=== PATIENT | male | born 1955 | race Caucasian/White ===

== ENCOUNTER 2022-12-16 23:52 | Emergency (ER) | payer MEDICARE, SELFPAY ==
[2022-12-16 23:58] VITALS: BP 146/81; PULSE 77; RESP 16; TEMP 36.4; O2SAT 98
[2022-12-16 23:59] VITALS: BMI 24.1
--- NOTE | 2022-12-17 00:17 | ECG_ITS ---
[facility] Test Date: 2022-12-17 Pat Name: Levi Avina Department: Room: Gender: Male Colorist Dyer: : 1955 Requested By: Cristi Jay Order Number: [id number] Marisela MD: Anton Canchola M.D. Measurements Intervals [place] Rate: 75 P: 0 IA: 0 QRS: 247 QRSD: 175 T: 79 QT: 431 QTc: 482 Interpretive Statements ELECTRONIC VENTRICULAR PACEMAKER ABNORMAL RHYTHM ECG No previous ECG available for comparison Electronically Signed On 12-17-2022 8:12:03 CDT by Anton Canchola M.D. [id number] f
--- NOTE | 2022-12-17 00:17 | XRR_ITS ---
PROCEDURE INFORMATION: Exam: XR Chest Exam date and time: 12/17/2022 12:43 AM Age: 67 years old Clinical indication: Pain; Chest pressure; Prior surgery; Surgery date: 6+ months; Surgery type: Mitral valve. Defibrillator; Patient HX: C/O chest discomfort after defibrillator fired. ; Additional info: Arrhythmia TECHNIQUE: Imaging protocol: Radiologic exam of the chest. Views: 1 view. COMPARISON: No relevant prior studies available. FINDINGS: Lungs: Unremarkable. No consolidation. Pulmonary vascularity is within normal limits. Pleural spaces: Unremarkable. No pleural effusion. No pneumothorax. Heart/Mediastinum: There is cardiomegaly. A pacemaker device is present, and its leads are in appropriate position. Bones/joints: No acute abnormality. XR/XR chest 1V portable [id number] IMPRESSION: No acute findings.
[2022-12-17 00:35] VITALS: BP 99/74; PULSE 75; O2SAT 96
--- NOTE | 2022-12-17 00:36 | PC.NURSE ---
[employer] Pacemker/defibrillator interrogated at 0028
[2022-12-17 01:00] VITALS: BP 104/73; PULSE 75; O2SAT 96
[2022-12-17 01:09] LABS: Alanine Aminotransferase 24 U/L (0-41); Alkaline Phosphatase 94 U/L (40-130); Anion Gap 13.7 (5-19); Aspartate Amino Transferase 27 U/L (0-40); Blood Urea Nitrogen 25 mg/dL (8-23); Calcium 9.7 mg/dL (8.5-10.5); Carbon Dioxide 25 mmol/L (22-29); Chloride 105 mmol/L (98-107); Globulin 2.4 g/dL (1.3-4.6); Glomerular Filtration Rate 66.6 mL/min (90-130); Glucose 102 mg/dL (65-115); Magnesium 2.1 mg/dL (1.7-2.3); NT Pro B Type Natriuretic Pept 6029 pg/mL (0-125); Osmolality Calculated 293 mOsm/kg (285-295); Potassium 4.7 mmol/L (3.5-5.1); Sodium 139 mmol/L (136-145); Total Bilirubin 0.4 mg/dL (0.15-1.2); Total Protein 6.4 g/dL (6.6-8.7)
[2022-12-17 01:24] LABS: Troponin(5th) Baseline 31 ng/L (0-15)
[2022-12-17 01:33] VITALS: BP 109/75; PULSE 75; O2SAT 95
[2022-12-17 01:36] LABS: INR 1.16 (0.8-1.2)
[2022-12-17 01:37] LABS: Partial Thromboplastin Time 30.7 SECONDS (23.9-36.7)
[2022-12-17 01:48] LABS: Basophils % 0.2 %; Eosinophils # 0.1 10^3/uL (0.0-0.8); Eosinophils % 1.5 %; Hematocrit 47.8 % (42.0-52.0); Hemoglobin 15.6 g/dL (11.7-16.6); Lymphocytes % 22.1 %; Mean Corpuscular HGB Conc 32.6 g/dL (30.0-36.0); Mean Corpuscular Hemoglobin 33.3 pg (28.0-34.0); Mean Corpuscular Volume 101.9 fl (80-94); Mean Platelet Volume 11.5 fL (7.4-10.4); Monocytes # 0.7 10^3/uL (0.2-0.9); Nucleated Red Blood Cells % 0 %; Platelet Count 152 10^3/cmm (130-400); Red Blood Count 4.69 10^6/uL (4.1-5.3); Red Cell Distribution Width 12.7 % (12.1-15.1); White Blood Count 9.1 10^3/uL (4.0-10.0)
--- NOTE | 2022-12-17 02:17 | ECG_ITS ---
[facility] Test Date: 2022-12-17 Pat Name: Levi Avina Department: Room: Gender: Male Air Sealing Technician: : 1955 Requested By: Cristi Jay Order Number: [id number] Marisela MD: Anotn Canchola M.D. Measurements Intervals [place] Rate: 75 P: 0 AR: 0 QRS: 236 QRSD: 177 T: 63 QT: 429 QTc: 479 Interpretive Statements ELECTRONIC VENTRICULAR PACEMAKER ABNORMAL RHYTHM ECG No previous ECG available for comparison Electronically Signed On 12-17-2022 8:16:24 CDT by Anton Canchola M.D. [id number] f
[2022-12-17 02:43] VITALS: BP 111/76; PULSE 75; O2SAT 97
[2022-12-17 02:51] LABS: Troponin 5 2HR 32.42 ng/L (0-15)
[2022-12-17 03:07] LABS: Troponin 5 2HR Delta 1.42 ABS# (0-10)
[2022-12-17 03:48] VITALS: BP 99/76; PULSE 76; RESP 18; O2SAT 97
--- NOTE | 2022-12-17 07:08 | ED_ITS ---
HPI - Arrhythmia/Palpitations General: Chief Complaint: Arrhythmia/Palpitations Stated Complaint: defibrillator went off Time Seen by Provider: 12/17/22 00:16 Source: patient History of Present Illness: 67-year-old male gentleman with a history of nonischemic cardiomyopathy following a heart valve surgery a few years ago. He had a ICD/pacer placed in [facility] in June. He presents after the device went off in his chest waking him from sleep. He had felt well the day prior. Besides fatigue and some neck discomfort from muscle contraction, he feels fine on arrival here. No recent illness. He has been taking his medications as prescribed. Recently he was increased on metoprolol from 50-100 twice daily. Onset (ago): minute(s) Severity: moderate Context: awoke with symptoms Arrhythmia history: other Associated symptoms: Reports no associated symptoms; Deny nausea or vomiting Review of Systems Const: Denies: fever(s) ENMT: Denies: throat pain Card: Denies: chest pain, swelling of feet/ankles or dyspnea on exertion Resp: Denies: dyspnea, productive cough or non-productive cough GI: Denies: abdominal pain, nausea or vomiting Skin/Breast: Denies: rash Physical Exam Const: COMMON NORMALS: no acute distress GENERAL APPEARANCE: cooperative; not ill appearing and not frail appearing HENMT: COMMON NORMALS: normocephalic, atraumatic and Normal external nose present HEAD & SCALP: normocephalic and atraumatic FACE & SINUS: normal facial exam and face symmetric NOSE: Normal external nose present Eye: COMMON NORMALS: Equal, round and reactive pupils present and EOMs intact bilaterally PUPIL: Yes Equal, round and reactive pupils present Neck/C-Spine: GENERAL: Yes trachea midline Chest: CHEST: Yes Symmetrical chest wall rise Resp: COMMON NORMALS: normal respiratory effort, No retractions, No use of accessory muscles and clear to auscultation bilaterally AUSCULTATION: clear to auscultation bilaterally Cardio: COMMON NORMALS: regular rate and regular rhythm RATE: regular rate RHYTHM: regular rhythm GI: COMMON NORMALS: Normal to inspection, nondistended, normoactive bowel sounds present Extremity: COMMON NORMALS: no pedal edema Neuro: ZOLTAN COMA SCALE: document GCS findings Zoltan coma scale eye opening: Spontaneous [place] coma scale verbal response: Orientated [place] coma scale motor response: Obey commands Zoltan coma scale total score: 15 SENSORY EXAM: Yes extremities (intact) Psych: COMMON NORMALS: speech normal SPEECH: Yes normal speech Skin: COMMON NORMALS: no rashes or lesions noted GENERAL SKIN EXAM: no rashes or lesions noted Course Vital Signs: Vital signs: Vital Signs Temperature 97.6 F 12/16/22 23:58 Pulse Rate 76 12/17/22 03:48 Respiratory Rate 18 12/17/22 03:48 Blood Pressure 99/76 12/17/22 03:48 Pulse Oximetry 97 12/17/22 03:48 Oxygen Delivery Me thod Room Air 12/17/22 02:43 MDM - Arrhythmia/Palpitations Medical Decision Making No repeated events. No episodes of arrhythmia on the monitor. Pacer as interpreted, and shortly after 11 PM, it shows conversion of ventricular tachycardia. CBC is normal. BMP shows a BUN of 25, otherwise normal. Magnesium is normal. Chest x-ray is nonacute with proper lead wire placement. BNP is elevated at 6000. His delta Trop at 2 hours is 1.4. EKG simply shows a paced rhythm. Spoke with cardiology. Agrees that and lieu of above findings, will allow home to follow-up with cardiology. Case management order has been placed to obtain the patient appointment. To return if any worsening symptoms. Lab Data 12/17/22 00:31 12/17/22 00:31 Radiology Impressions Chest X-Ray 12/17/22 00:17 IMPRESSION: No acute findings. Laboratory Results WBC 9.1 10^3/uL (4.0-10.0) 12/17/22 00:31 WBC Cancelled 12/17/22 00:31 Corrected WBC Cancelled 12/17/22 00:31 RBC 4.69 10^6/uL (4.1-5.3) 12/17/22 00:31 RBC Cancelled 12/17/22 00:31 Hgb 15.6 g/dL (11.7-16.6) 12/17/22 00:31 Hgb Cancelled 12/17/22 00:31 Hct 47.8 % (42.0-52.0) 12/17/22 00:31 Hct Cancelled 12/17/22 00:31 MCV 101.9 fl (80-94) H 12/17/22 00:31 MCV Cancelled 12/17/22 00:31 MCH 33.3 pg (28.0-34.0) 12/17/22 00:31 MCH Cancelled 12/17/22 00:31 MCHC 32.6 g/dL (30.0-36.0) 12/17/22 00:31 MCHC Cancelled 12/17/22 00:31 RDW 12.7 % (12.1-15.1) 12/17/22 00:31 RDW Cancelled 12/17/22 00:31 Plt Count 152 10^3/cmm (130-400) 12/17/22 00:31 Plt Count Cancelled 12/17/22 00:31 MPV 11.5 fL (7.4-10.4) H 12/17/22 00:31 MPV Cancelled 12/17/22 00:31 Gran % Cancelled 12/17/22 00:31 Neut % (Auto) 68.0 % 12/17/22 00:31 Neut % (Auto) Cancelled 12/17/22 00:31 Lymph % (Auto) 22.1 % 12/17/22 00:31 Lymph % (Auto) Cancelled 12/17/22 00:31 Eaton % (Auto) 8.0 % 12/17/22 00:31 [place] % (Auto) Cancelled 12/17/22 00:31 Eos % (Auto) 1.5 % 12/17/22 00:31 Eos % (Auto) Cancelled 12/17/22 00:31 Baso % (Auto) 0.2 % 12/17/22 00:31 Baso % (Auto) Cancelled 12/17/22 00:31 Neut # (Auto) 6.20 10^3/uL (1.8-7.7) 12/17/22 00:31 Neut # (Auto) Cancelled 12/17/22 00:31 Lymph # (Auto) 2.0 10^3/uL (0.8-4.8) 12/17/22 00:31 Lymph # (Auto) Cancelled 12/17/22 00:31 [place]aton # (Auto) 0.7 10^3/uL (0.2-0.9) 12/17/22 00:31 [place] # (Auto) Cancelled 12/17/22 00:31 Eos # (Auto) 0.1 10^3/uL (0.0-0.8) 12/17/22 00:31 Eos # (Auto) Cancelled 12/17/22 00:31 Baso # (Auto) 0.0 10^3/uL (0.0-0.1) 12/17/22 00:31 Baso # (Auto) Cancelled 12/17/22 00:31 Absolute Gran (auto) Cancelled 12/17/22 00:31 Nucleated RBC % (auto) 0 % 12/17/22 00:31 Nucleated RBC % (auto) Cancelled 12/17/22 00:31 Nucleated RBCs # 0.0 /100WBC 12/17/22 00:31 Nucleated RBCs # Cancelled 12/17/22 00:31 PT 15.20 SECONDS (12.1-14.9) H 12/17/22 01:05 INR 1.16 (0.8-1.2) 12/17/22 01:05 APTT 30.7 SECONDS (23.9-36.7) 12/17/22 01:05 Sodium 139 mmol/L (136-145) 12/17/22 00:31 Potassium 4.7 mmol/L (3.5-5.1) 12/17/22 00:31 Chloride 105 mmol/L (98-107) 12/17/22 00:31 Carbon Dioxide 25 mmol/L (22-29) 12/17/22 00:31 Anion Gap 13.7 (5-19) 12/17/22 00:31 BUN 25 mg/dL (8-23) H 12/17/22 00:31 Creatinine 1.1 mg/dL (0.7-1.2) 12/17/22 00:31 GFR Calculation 66.6 mL/min (90-130) L 12/17/22 00:31 Glucose 102 mg/dL (65-115) 12/17/22 00:31 Calculated Osmolality 293 mOsm/kg (285-295) 12/17/22 00:31 Calcium 9.7 mg/dL (8.5-10.5) 12/17/22 00:31 Magnesium 2.1 mg/dL (1.7-2.3) 12/17/22 00:31 Total Bilirubin 0.4 mg/dL (0.15-1.2) 12/17/22 00:31 AST 27 U/L (0-40) 12/17/22 00:31 ALT 24 U/L (0-41) 12/17/22 00:31 Alkaline Phosphatase 94 U/L (40-130) 12/17/22 00:31 Troponin T Baseline 31 ng/L (0-15) H 12/17/22 00:31 Troponin T 120 Minute 32.42 ng/L (0-15) H 12/17/22 02:22 Delta Troponin T 1.42 ABS# (0-10) 12/17/22 02:22 NT-Pro-B Natriuret Pep 6029 pg/mL (0-125) H 12/17/22 00:31 Total Protein 6.4 g/dL (6.6-8.7) L 12/17/22 00:31 Albumin 4.0 g/dL (3.5-5.2) 12/17/22 00:31 Globulin 2.4 g/dL (1.3-4.6) 12/17/22 00:31 Discharge Plan Discharge Patient Disposition: Home Clinical Impression: Palpitations, Ventricular tachycardia Condition: Stable Discharge Orders: Discharge ED (Routine); Ordered 12/17/22 Ordered By: Cristi Amador Patient Instructions: Heart Failure (ED) Activity Restrictions/Additional Instructions: Return to the emergency department for any repeated shocks, chest discomfort, syncope or passing out, any other concerning symptoms. Case management has been asked to make you a follow-up cardiology appointment. You should hear from them Saturday or Saturday. Follow-up with your doctor later today as scheduled. Continue your medications at current dosages. Coding Level of Care Code ED Tool Maintenance Technician for Naren Judge
--- NOTE | 2022-12-17 10:31 | DCPLANNER ---
Addendum entered by Gabby Gregorio 01/18/23 10:42: Patient did attend appointment Addendum entered by Gabby Gregorio 12/18/22 14:58: Patient has a follow up appointment scheduled for January at 2:[address] Licona at [facility]. Original Note: facilities project manager had message to schedule a follow up appointment for patient with cardiology. facilities project manager sent patients information to the front office staff at [facility]. Patients information will be printed and reviewed. Clinic will call patient with appointment information.
--- NOTE | 2022-12-17 11:19 | DCPLANNER ---
Addendum entered by Gabby Gregorio 12/17/22 12:51: Patient called case supervisor back, stating that he sees Dr. Fountain at [facility] for his primary care. Original Note: production service manager called patient due to no primary care physician - no answer at this time.
== END 2022-12-17 03:53 | disposition home or self-care (01) ==
PROVIDERS: Emergency Provider Emergency Medicine; PCP Family Medicine
DX: I47.20 Ventricular tachycardia, unspecified (principal); R00.2 Palpitations; R79.89 Other specified abnormal findings of blood chemistry; Z95.0 Presence of cardiac pacemaker
CPT/HCPCS: 36415; 71045; 80053; 83735; 83880; 84484; 85025; 85610; 85730; 93005; 99285

== ENCOUNTER 2022-12-29 14:08 | Emergency (ER) | payer MEDICARE, SELFPAY ==
[2022-12-29 14:10] VITALS: BP 108/76; PULSE 77; RESP 16; TEMP 36.7; O2SAT 95; BMI 24.0
[2022-12-29] MEDS: oxymetazoline 0.05% Nasal Spray 15 mL 2 SPRAY NOSTRIL-B (15:25)
[2022-12-29 15:35] VITALS: BP 126/86; PULSE 74; O2SAT 95
--- NOTE | 2022-12-29 15:43 | ED_ITS ---
HPI - Epistaxis General: Chief complaint: Epistaxis Stated complaint: Nose Bleed Time Seen by Provider: 12/29/22 14:30 History of Present Illness: Mr. Avina is a 67-year-old man that presents to the emergency department with epistaxis. Patient reports he has a history of heart failure, pacemaker defibrillator, atrial fibrillation and mitral valve replacement in the last 18 months. Since that time he has been on Eliquis and aspirin. He notes the development of epistaxis on . His symptoms seem to resolve and then recur this afternoon. The original epistaxis was controllable at home; however this episode has not resolved. Patient denies any recent trauma or hypertension. He does report some type of septal defect that was recently diagnosed. Associated symptoms: Deny fever(s), headache(s), sinus pain or vomiting Review of Systems General: Reports: 10 or more systems reviewed and unremarkable except in HPI and below Const: Denies: fever(s), chills, change in appetite, change in weight, fatigue or malaise Eyes: Denies: change in vision, eye discomfort, eye discharge or eye redness ENMT: Denies: throat pain, enlarged tonsils, odynophagia, hoarseness, ear or mastoid pain, ear discharge, change in hearing, tinnitus, nasal discharge, nasal congestion, post nasal drip or sinus pain Card: Denies: chest pain, palpitations, irregular heart rhythm, edema, dyspnea on exertion, orthopnea or leg pain with exertion Resp: Denies: dyspnea, productive cough, non-productive cough, wheezing, stridor or chest congestion GI: Denies: abdominal pain, nausea, vomiting, dysphagia, diarrhea, constipation, bloating, GI cramping or hematochezia : Denies: flank pain, dysuria, urinary frequency, urinary urgency, urinary hesitancy, oliguria or hematuria Musc: Denies: neck pain, back pain, extremity pain, joint pain, joint swelling, joint redness, joint warmth or muscle weakness Skin/Breast: Denies: rash, pruritus, erythema, photosensitivity or new lesions Neuro: Denies: headache(s), numbness in extremities, weakness in extremities, sensory changes, lack of coordination, difficulty walking, frequent falls, dizziness, confusion, Slurred speech present, difficulty communicating thoughts, seizure-like activity or involuntary movements Endo: Denies: polyuria, polydipsia or tired all the time Matt/Lymph: Denies: easy bruising or easy bleeding Physical Exam Const: COMMON NORMALS: no acute distress, patient oriented x3 and alert GENERAL APPEARANCE: cooperative ORIENTATION/CONSCIOUSNESS: Yes awake, Yes oriented to person, Yes oriented to place and Yes oriented to time HENMT: COMMON NORMALS: normocephalic, atraumatic and Normal external nose present HEAD & SCALP: normocephalic and atraumatic FACE & SINUS: normal facial exam NOSE: Normal external nose present and Epistaxis present bilaterally active bleeding and source not visualized MOUTH: Normal oral and palatal mucosa present THROAT: posterior oropharynx normal Eye: COMMON NORMALS: Equal, round and reactive pupils present, EOMs intact laura aterally, conjunctivae normal and no scleral icterus GENERAL EYE: appearance normal, both eyes and all related structures ALIGNMENT: Yes alignment normal PERIORBITAL: periorbital findings normal CONJUNCTIVA: Yes conjunctivae normal PUPIL: Yes Equal, round and reactive pupils present Neck/C-Spine: COMMON NORMALS: full ROM GENERAL: Yes normal visual inspection Lymph: LYMPHATIC: no lymphadenopathy noted Chest: COMMONS NORMALS: normal inspection of the chest Breast/axilla inspection: Yes no chest deformity, asymmetry, normal contours, no nodules, masses, tenderness Resp: COMMON NORMALS: normal respiratory effort, No retractions, No use of accessory muscles and clear to auscultation bilaterally EFFORT & INSPECTION: Yes able to speak in complete sentences and Yes symmetric chest movement AUSCULTATION: clear to auscultation bilaterally Cardio: COMMON NORMALS: regular rate, regular rhythm and Peripheral pulses 2+ throughout RATE: regular rate RHYTHM: regular rhythm PERIPHERAL PULSES: Peripheral pulses 2+ throughout GI: COMMON NORMALS: Normal to inspection, nondistended, normoactive bowel sounds present, Soft to palpation, non-tender and No hepatosplenomegaly present INSPECTION: Yes normal to inspection AUSCULTATION: Yes normoactive bowel sounds PALPATION: Yes Soft to palpation and Yes No hepatosplenomegaly present RECTAL EXAM: Yes deferred Extremity: COMMON NORMALS: normal to inspection GENERAL: Yes normal exam except as noted Neuro: COMMON NORMALS: patient oriented x3 SENSORIUM/ORIENTATION: Yes alert, Yes oriented to person, Yes oriented to place and Yes oriented to time CRANIAL NERVES: Yes CN normal except as noted Psych: COMMON NORMALS: mental status grossly normal, Normal thought process present, cooperative, activity/motor behavior normal, denies homicidal ideation and denies suicidal ideation THOUGHT PROCESS: Normal thought process present Skin: COMMON NORMALS: no rashes or lesions noted, no wounds and turgor normal GENERAL SKIN EXAM: no rashes or lesions noted and turgor normal Course Vital Signs: Vital signs: Vital Signs Temperature 98.0 F 12/29/22 14:10 Pulse Rate 74 12/29/22 15:35 Respiratory Rate 16 12/29/22 14:10 Blood Pressure 126/86 12/29/22 15:35 Pulse Oximetry 95 12/29/22 15:35 Oxygen Delivery Me thod Room Air 12/29/22 14:10 MDM - Epistaxis Medical Decision Making Patient was evaluated in the emergency department for second occurrence of epistaxis and the last 3 days. Patient has never had prior episodes. Patient is on Eliquis twice daily. Patient was given Afrin and compression for about 20 minutes. Unfortunately patient blood to the clot when he tried to clear his nares. Patient has been instructed on avoiding that motion or blowing his nose. Afrin reapplied and the nose old applicator was applied. We are going to observe him for the next 30 minutes to see if we can gain control of this epistaxis. Transferred care to [facility] Discharge Plan Discharge Condition: Stable Prescriptions: No Action Vitamin C 1,000 mg Tablet 500 mg PO DAILY amiodarone 200 mg Tablet 200 mg PO BID metoprolol succinate 100 mg Tablet Extended Release 24 Hr 100 mg PO BID Aspir-81 81 mg Tablet,Delayed Release (Dr/Ec) 81 mg PO DAILY spironolactone 25 mg Tablet 25 mg PO DAILY vitamin B complex Tablet 1 tab PO DAILY montelukast 10 mg Tablet 10 mg PO QPM allopurinol 300 mg Tablet 300 mg PO DAILY digoxin 125 mcg (0.125 mg) Tablet 125 mcg PO QPM CoQ-10 100 mg Capsule 200 mg PO DAILY rosuvastatin 10 mg Tablet 10 mg PO QPM Symbicort 80-4.5 mcg/actuation Hfa Aerosol Inhaler 2 puff INHALATION BID Centrum Silver Men 300-600-300 mcg Tablet 1 tab PO DAILY Eliquis 5 mg Tablet 5 mg PO BID Farxiga 10 mg Tablet 10 mg PO DAILY Entresto 24-26 mg Tablet 0.5 tab PO BID Vitamin D3 125 mcg (5,000 unit) Tablet 125 mcg PO QPM Referrals: Jerry Fountain MD [Primary Care Provider] - Coding Level of Care Code ED Sew Out Operator for Misg Alfie
[2022-12-29] MEDS: amoxicillin-clav 875-125 mg Tablet 1 TAB PO (17:30)
[2022-12-29] MEDS: HYDROcodone-acetaminophen 5-325 mg Tablet 1 TAB PO (17:30)
[2022-12-29 17:38] LABS: Basophils % 0.4 %; Eosinophils # 0.1 10^3/uL (0.0-0.8); Eosinophils % 0.7 %; Hemoglobin 16.4 g/dL (11.7-16.6); Lymphocytes # 2.1 10^3/uL (0.8-4.8); Lymphocytes % 20.6 %; Mean Corpuscular HGB Conc 32.2 g/dL (30.0-36.0); Mean Corpuscular Hemoglobin 33.3 pg (28.0-34.0); Mean Corpuscular Volume 103.7 fl (80-94); Mean Platelet Volume 10.8 fL (7.4-10.4); Monocytes # 0.8 10^3/uL (0.2-0.9); Neutrophils # 7.05 10^3/uL (1.8-7.7); Neutrophils % 70.1 %; Nucleated Red Blood Cells % 0 %; Platelet Count 177 10^3/cmm (130-400); Red Blood Count 4.92 10^6/uL (4.1-5.3); Red Cell Distribution Width 12.8 % (12.1-15.1); White Blood Count 10.1 10^3/uL (4.0-10.0)
[2022-12-29 17:39] VITALS: BP 124/93; PULSE 86; O2SAT 94
[2022-12-29 17:50] LABS: INR 1.12 (0.8-1.2); Partial Thromboplastin Time 31.3 SECONDS (23.9-36.7)
[2022-12-29] MEDS: silver nitrate applicator 1 EACH TOPICAL (18:16)
[2022-12-29] MEDS: lidocaine-epi 1% 20 mL INJ 10 ML INJECTION (18:16)
[2022-12-29 18:31] VITALS: BP 119/86; PULSE 76; O2SAT 96
[2022-12-29 18:56] VITALS: BP 112/81; PULSE 69; RESP 16; O2SAT 96
--- NOTE | 2022-12-31 08:48 | DCPLANNER ---
Addendum entered by Gabby Gregorio 01/17/23 11:55: Patient had a follow up appointment scheduled with ENT - patient did attend appointment. Addendum entered by Gabby Gregorio 01/07/23 07:21: Patient has a follow up appointment scheduled for Saturday, January 14, 2023 at 10:[address] Engle at [facility]. Original Note: floral manager had message to schedule a follow up appointment for patient with ENT. floral manager sent patients information to the front office staff at [facility]. Patients information will be printed and reviewed. Clinic will call patient with appointment information.
== END 2022-12-29 18:59 | disposition home or self-care (01) ==
PROVIDERS: Emergency Provider Nurse Practitioner Family; PCP Family Medicine
DX: R04.0 Epistaxis (principal); Z79.82 Long term (current) use of aspirin
CPT/HCPCS: 30901; 36415; 85025; 85610; 85730; 99283

== ENCOUNTER → 2023-01-16 12:39 | Outpatient (BNVA) | payer MEDICARE, SELFPAY | PROVIDERS: PCP Family Medicine; Visit Provider Otolaryngology | DX: R04.0 Epistaxis (principal); J34.89 Other specified disorders of nose and nasal sinuses; I48.91 Unspecified atrial fibrillation; I10 Essential (primary) hypertension | CPT/HCPCS: 99203 ==

== ENCOUNTER → 2023-01-17 13:43 | Outpatient (BNVA) | payer MEDICARE, SELFPAY | PROVIDERS: PCP Family Medicine; Visit Provider Internal Medicine | DX: I48.91 Unspecified atrial fibrillation (principal); I11.0 Hypertensive heart disease with heart failure; I50.20 Unspecified systolic (congestive) heart failure; Z79.01 Long term (current) use of anticoagulants | CPT/HCPCS: 99204 ==

== ENCOUNTER → 2023-04-08 12:50 | Outpatient (BNVA) | payer MEDICARE, SELFPAY | PROVIDERS: PCP Family Medicine; Visit Provider Internal Medicine | DX: I48.91 Unspecified atrial fibrillation (principal); Z79.01 Long term (current) use of anticoagulants; I11.0 Hypertensive heart disease with heart failure; I50.20 Unspecified systolic (congestive) heart failure | CPT/HCPCS: 99214 ==

== ENCOUNTER → 2023-10-07 15:11 | Outpatient (BNVA) | payer MEDICARE, SELFPAY | PROVIDERS: PCP Family Medicine; Visit Provider Internal Medicine | DX: I48.91 Unspecified atrial fibrillation (principal); I11.0 Hypertensive heart disease with heart failure; I50.20 Unspecified systolic (congestive) heart failure; Z87.891 Personal history of nicotine dependence; Z79.01 Long term (current) use of anticoagulants; E78.5 Hyperlipidemia, unspecified | CPT/HCPCS: 99214 ==

== ENCOUNTER 2023-10-29 11:21 | Outpatient (CLI) | payer MEDICARE, SELFPAY ==
[2023-10-29 13:48] LABS: Anion Gap 14.4 (5-19); Blood Urea Nitrogen 31 mg/dL (8-23); Calcium 9.4 mg/dL (8.5-10.5); Carbon Dioxide 28 mmol/L (22-29); Chloride 102 mmol/L (98-107); Glomerular Filtration Rate 54.7 mL/min (90-130); Glucose 94 mg/dL (65-115); NT Pro B Type Natriuretic Pept 3312 pg/mL (0-125); Osmolality Calculated 294 mOsm/kg (285-295); Potassium 5.4 mmol/L (3.5-5.1); Sodium 139 mmol/L (136-145)
== END 2023-10-29 11:22 | disposition home or self-care (01) ==
PROVIDERS: PCP Family Medicine; Visit Provider Internal Medicine
DX: I50.20 Unspecified systolic (congestive) heart failure (principal); I48.91 Unspecified atrial fibrillation; I10 Essential (primary) hypertension
CPT/HCPCS: 36415; 80048; 83880

== ENCOUNTER 2023-11-15 10:19 | Outpatient (CLI) | payer MEDICARE, SELFPAY ==
[2023-11-15 11:16] LABS: Anion Gap 14.1 (5-19); Blood Urea Nitrogen 30 mg/dL (8-23); Calcium 9.3 mg/dL (8.5-10.5); Carbon Dioxide 27 mmol/L (22-29); Chloride 101 mmol/L (98-107); Glomerular Filtration Rate 50.2 mL/min (90-130); Glucose 113 mg/dL (65-115); NT Pro B Type Natriuretic Pept 6298 pg/mL (0-125); Osmolality Calculated 291 mOsm/kg (285-295); Potassium 5.1 mmol/L (3.5-5.1); Sodium 137 mmol/L (136-145)
== END 2023-11-15 10:20 | disposition home or self-care (01) ==
LOC: LAB 10:20
PROVIDERS: PCP Family Medicine; Visit Provider Internal Medicine
DX: I48.91 Unspecified atrial fibrillation (principal); I50.20 Unspecified systolic (congestive) heart failure
CPT/HCPCS: 80048; 83880

== ENCOUNTER 2023-12-09 10:12 | Outpatient (CLI) | payer MEDICARE, SELFPAY ==
[2023-12-09 11:05] LABS: Blood Urea Nitrogen 31 mg/dL (8-23); Calcium 9.4 mg/dL (8.5-10.5); Carbon Dioxide 28 mmol/L (22-29); Chloride 101 mmol/L (98-107); Glomerular Filtration Rate 54.7 mL/min (90-130); Glucose 93 mg/dL (65-115); Osmolality Calculated 292 mOsm/kg (285-295); Sodium 138 mmol/L (136-145)
== END 2023-12-09 10:13 | disposition home or self-care (01) ==
LOC: LAB 10:14
PROVIDERS: Internal Medicine Cardiovascular Disease; PCP Family Medicine; Visit Provider Internal Medicine
DX: I48.91 Unspecified atrial fibrillation (principal); I11.0 Hypertensive heart disease with heart failure; I50.20 Unspecified systolic (congestive) heart failure
CPT/HCPCS: 36415; 80048

== ENCOUNTER → 2024-04-09 09:30 | Outpatient (BNVA) | payer MEDICARE, SELFPAY | PROVIDERS: PCP Family Medicine; Visit Provider Nurse Practitioner Family | DX: I48.0 Paroxysmal atrial fibrillation (principal); Z79.01 Long term (current) use of anticoagulants; I11.0 Hypertensive heart disease with heart failure; I50.20 Unspecified systolic (congestive) heart failure; Z95.2 Presence of prosthetic heart valve; Z95.0 Presence of cardiac pacemaker | CPT/HCPCS: 99214 ==

== ENCOUNTER → 2024-09-07 14:20 | Outpatient (BNVA) | payer MEDICARE, SELFPAY | PROVIDERS: PCP Family Medicine; Referring Provider Family Medicine; Visit Provider Nurse Practitioner Family | DX: L57.8 Other skin changes due to chronic exposure to nonionizing radiation (principal); L81.4 Other melanin hyperpigmentation; D22.5 Melanocytic nevi of trunk; L81.3 Cafe au lait spots; Z08 Encounter for follow-up examination after completed treatment for malignant neoplasm; Z85.828 Personal history of other malignant neoplasm of skin; D48.5 Neoplasm of uncertain behavior of skin; L57.0 Actinic keratosis | CPT/HCPCS: 11102; 17000; 99203 ==

== ENCOUNTER → 2024-10-01 08:48 | Outpatient (BNVA) | payer MEDICARE, SELFPAY | PROVIDERS: PCP Family Medicine; Visit Provider Dermatology | DX: L84 Corns and callosities (principal); L81.4 Other melanin hyperpigmentation; Z08 Encounter for follow-up examination after completed treatment for malignant neoplasm; Z85.828 Personal history of other malignant neoplasm of skin; C44.41 Basal cell carcinoma of skin of scalp and neck; C44.519 Basal cell carcinoma of skin of other part of trunk | CPT/HCPCS: 12042; 17262; 17311; 99213 ==

== ENCOUNTER → 2024-10-07 13:04 | Outpatient (BNVA) | payer MEDICARE, SELFPAY | PROVIDERS: PCP Family Medicine; Visit Provider Internal Medicine | DX: I48.0 Paroxysmal atrial fibrillation (principal); I11.0 Hypertensive heart disease with heart failure; I50.20 Unspecified systolic (congestive) heart failure; Z95.810 Presence of automatic (implantable) cardiac defibrillator | CPT/HCPCS: 99214 ==

== ENCOUNTER → 2024-10-12 11:35 | Outpatient (BNVA) | payer MEDICARE, SELFPAY | PROVIDERS: PCP Family Medicine; Visit Provider Dermatology | DX: L23.9 Allergic contact dermatitis, unspecified cause (principal) | CPT/HCPCS: 99213 ==

== ENCOUNTER → 2025-01-18 10:30 | Outpatient (BNVA) | payer MEDICARE, SELFPAY | PROVIDERS: PCP Family Medicine; Visit Provider Dermatology | DX: L82.1 Other seborrheic keratosis (principal); L57.8 Other skin changes due to chronic exposure to nonionizing radiation; Z08 Encounter for follow-up examination after completed treatment for malignant neoplasm; Z85.828 Personal history of other malignant neoplasm of skin; L82.0 Inflamed seborrheic keratosis; R20.8 Other disturbances of skin sensation; L53.8 Other specified erythematous conditions; L29.89 Other pruritus; L57.0 Actinic keratosis | CPT/HCPCS: 17000; 17110; 99213 ==

== ENCOUNTER → 2025-03-08 09:07 | Outpatient (BNVA) | payer MEDICARE, SELFPAY | PROVIDERS: PCP Family Medicine; Visit Provider Dermatology | DX: L57.8 Other skin changes due to chronic exposure to nonionizing radiation (principal); L82.1 Other seborrheic keratosis; L81.4 Other melanin hyperpigmentation; Z08 Encounter for follow-up examination after completed treatment for malignant neoplasm; Z85.828 Personal history of other malignant neoplasm of skin | CPT/HCPCS: 17000; 99213 ==

== ENCOUNTER → 2025-04-07 11:46 | Outpatient (BNVA) | payer MEDICARE, SELFPAY | PROVIDERS: PCP Family Medicine; Visit Provider Internal Medicine Cardiovascular Disease | DX: Z45.02 Encounter for adjustment and management of automatic implantable cardiac defibrillator (principal) | CPT/HCPCS: 93296 ==

== ENCOUNTER → 2025-06-01 15:27 | Outpatient (BNVA) | payer MEDICARE, SELFPAY | PROVIDERS: PCP Family Medicine; Visit Provider Internal Medicine | DX: I48.0 Paroxysmal atrial fibrillation (principal); I11.0 Hypertensive heart disease with heart failure; I50.23 Acute on chronic systolic (congestive) heart failure; Z79.01 Long term (current) use of anticoagulants; Z95.810 Presence of automatic (implantable) cardiac defibrillator | CPT/HCPCS: 99214 ==